=== PATIENT | male | born 1965 | race Caucasian/White ===

== ENCOUNTER 2024-04-16 14:24 | Outpatient (CLI) | payer OTHER, SELFPAY | END 2024-04-16 14:25 | disposition home or self-care (01) | PROVIDERS: PCP Family Medicine; Visit Provider Family Medicine | DX: Z12.5 Encounter for screening for malignant neoplasm of prostate (principal); Z13.220 Encounter for screening for lipoid disorders; Z13.228 Encounter for screening for other metabolic disorders | CPT/HCPCS: 80053; 80061; G0103 ==

== ENCOUNTER 2024-07-17 07:31 | Outpatient (CLI) | payer OTHER, SELFPAY | END 2024-07-17 07:32 | disposition home or self-care (01) | LOC: NFLDREF 07-21 06:31 | PROVIDERS: PCP Family Medicine; Referring Provider Family Medicine; Visit Provider Family Medicine | DX: Z13.220 Encounter for screening for lipoid disorders (principal) | CPT/HCPCS: 80061 ==